=== PATIENT | male | born 1975 | race Caucasian/White ===

== ENCOUNTER → 2016-07-14 | Outpatient (CLI) | payer SELFPAY ==
[2016-07-14 09:28] LABS: HEMATOCRIT 45.5 % (42.0-52.0); HEMOGLOBIN 15.7 g/dL (14.0-18.0); MEAN CORPUSCULAR HEMOGLOBIN 30.4 PG (27-31); MEAN CORPUSCULAR HGB CONC 34.5 g/dL (33-37); MEAN CORPUSCULAR VOLUME 88.2 FL (80-90); MEAN PLATELET VOLUME 9.2 FL (7.4-12.2); RED BLOOD COUNT 5.16 10^6/uL (4.70-6.10)
[2016-07-14 09:53] LABS: BILIRUBIN,URINE NEGATIVE (NEG); COLOR,URINE YELLOW; GLUCOSE, URINE (UA) NEGATIVE (NEG); NITRATE,URINE NEGATIVE (NEG); OCCULT BLOOD,URINE NEGATIVE (NEG); PROTEIN,URINE NEGATIVE (NEG); UROBILINOGEN,URINE 0.2 EU/dL (0.2)
[2016-07-14 09:57] LABS: CLARITY,URINE CLEAR (CLEAR)
[2016-07-15 06:09] LABS: CALCIUM 8.7 mg/dL (8.7-10.7); EST GLOMERULAR FILTRATION > 60 (>60 ml/min/1.73m(2)); SERUM ALBUMIN 3.8 g/dL (3.5-4.8)
[2016-07-15 18:20] LABS: URINE SAMPLE TYPE CLEAN CATCH URINE
== END ==
LOC: LAB 08:57
PROVIDERS: ATTEND Family Medicine
DX: N50.812 Left testicular pain (principal); J44.9 Chronic obstructive pulmonary disease, unspecified; R35.0 Frequency of micturition; Z80.0 Family history of malignant neoplasm of digestive organs; F17.200 Nicotine dependence, unspecified, uncomplicated
CPT/HCPCS: 36415; 80053; 80061; 81003; 85027

== ENCOUNTER → 2016-07-16 | Outpatient (CLI) | payer SELFPAY ==
--- NOTE | 2016-07-16 14:23 | DI ---
US SCROTUM,07/16/2016 12:48 PM: Clinical History: Left testicular pain Previous Exam: None at this facility. Findings: Multiple grayscale and color Doppler sonographic images are obtained through the testicles and scrotu m bilaterally. The testicles are normal in size shape and echotexture bilaterally with normal Doppler waveforms. The re is no evidence of intratesticular mass. There is no evidence of torsion. The right testicle measured 4.4 x 2.0 x 2.9 cm and the left testicle measured 3.9 x 2.2 x 2.7 cm. The re is normal venous and arterial Doppler waveforms obtained. The area of maximum tenderness correspond with the cutaneous lesion near the posterior scrotum near t he base of the penis. This measures 1.1 x 0.9 cm and is diffusely hypoechoic with a central portion t hat is nearly anechoic. Impression: Tenderness corresponds with a deep subcutaneous lesion within the posterior scrotum near the base of the penis measuring 1.1 x 0.9 cm.
== END ==
LOC: US 12:42
PROVIDERS: ATTEND Family Medicine
DX: N50.812 Left testicular pain (principal); F17.200 Nicotine dependence, unspecified, uncomplicated
CPT/HCPCS: 76870

== ENCOUNTER 2016-07-17 23:26 | Emergency (ER) | payer SELFPAY ==
[2016-07-17 23:52] LABS: BASOPHILS # (AUTO) 0.08 10*3/UL; BASOPHILS % (AUTO) 0.5 % (0-1); BLOOD UREA NITROGEN 12 mg/dL (7-22); CALCIUM 9.1 mg/dL (8.7-10.7); EOSINOPHILS # (AUTO) 0.21 10*3/UL; EOSINOPHILS % (AUTO) 1.4 % (0-8); EST GLOMERULAR FILTRATION > 60 (>60 ml/min/1.73m(2)); HEMATOCRIT 49.7 % (42.0-52.0); HEMOGLOBIN 17.3 g/dL (14.0-18.0); MEAN CORPUSCULAR HEMOGLOBIN 30.4 PG (27-31); MEAN CORPUSCULAR HGB CONC 34.8 g/dL (33-37); MEAN CORPUSCULAR VOLUME 87.3 FL (80-90); MEAN PLATELET VOLUME 9.2 FL (7.4-12.2); MONOCYTES # (AUTO) 0.48 10*3/UL (0.3-0.8); MONOCYTES % (AUTO) 3.2 % (5-15); NEUTROPHILS # (AUTO) 11.59 10*3/UL; NEUTROPHILS % (AUTO) 76.2 % (50-80); PLATELET MORPHOLOGY COMMENT NORMAL MORPHOLOGY (NORM); RBC MORPHOLOGY COMMENT NORMAL MORPHOLOGY (NORM); RED BLOOD COUNT 5.69 10^6/uL (4.70-6.10); SERUM ALBUMIN 4.7 g/dL (3.5-4.8); WBC MORPHOLOGY COMMENT NORMAL MORPHOLOGY (NORM)
[2016-07-18 00:03] VITALS: TEMP 96.3
[2016-07-18] MEDS ORDERED: Sodium Chloride 0.9% 1,000 ML PRIMARY IV ONE (00:10)
[2016-07-18 03:29] LABS: URINE SAMPLE TYPE VOIDED SPECIMEN; URINE SPECIFIC GRAVITY - MAN 1.007
[2016-07-18 03:32] VITALS: RESP 18
[2016-07-18 03:38] LABS: AMPHETAMINE SCREEN POSITIVE (NEG); METHAMPHETAMINES SCREEN,URINE NEGATIVE (NEG)
[2016-07-18 03:39] LABS: CANNABINOID SCREEN,URINE NEGATIVE (NEG); COCAINE SCREEN NEGATIVE (NEG); METHADONE URINE SCREEN NEGATIVE (NEG); OPIATE SCREEN,URINE NEGATIVE (NEG)
--- NOTE | 2016-07-18 07:07 | PDOC ---
General Adult HPI - General Chief Complaint: Drug / Alcohol Use &/or Abuse Stated Complaint: ETOH INTOXICATION Date Seen by Provider: 07/17/16 Time Seen by Provider: 23:40 Source: POSITIVE: Patient, EMS Exam Limitations: POSITIVE: No limitations Nurse's Notes Reviewed & Considered: Yes EMS Report Reviewed & Considered: Verbal - History of Present Illness Initial Comment: The patient is a 40-year-old male who was brought to the emergency room by ambulance. Patient was drinking heavily at a local bar when he reportedly had a couple episodes of vomiting and then passed out. Paramedics report that he is responsive but had decreased responsiveness and smelled very heavily of alcohol. Have you received a tetanus shot in the past 10 years?: Unknown Body Location Affected: REPORTS: Other (Alcoholic intoxication) Timing: REPORTS: Gradual Duration: <24 hours Severity: Moderate Quality: REPORTS: Other (No pain anywhere) Context: REPORTS: Other (Drinking heavily). DENIES: None, Sitting, Standing, Activity, Emotional stress, Coughing, Recent Trauma, Recent Surgery, Sleep, Rest , Lifting, Turning, Bending, Fall, Near Fall Modifying Factors: improves with: Vomiting (As above) Similar Symptoms Previously: Yes (history of alcohol abuse) Recent Care Received: REPORTS: Denies Any Prior Injuries Related to Current Complaint?: No - Patient Home Medications Home Medications: Home Medications Albuterol Sulfate [Ventolin Hfa] 1 - 2 puff INH Q4-6H puff 06/26/16 Amphet Asp/Amphet/D-Amphet [Adderall Xr 20 Mg Capsule] 20 mg PO DAILY cap 06/26 Fluticasone/Vilanterol [Breo Ellipta 200-25 Mcg Inh] 1 each INH puff 06/26/16 - Patient Allergies Allergies/Adverse Reactions: Allergies Allergy/AdvReac Type Severity Reaction Status Date / Time Penicillins Allergy Severe NOT Verified 07/17/16 23:39 APPLICABLE Past Medical History - heen HEENT History: Denies History Cardiovascular History: Denies History Respiratory History: COPD Gastrointestinal History: Denies History Genitourinary History: Denies History Endocrine History: Denies History Musculoskeletal History: Denies History Neurological History: Denies History Blood Disorders: Denies History Psychiatric History: Denies History History of Sexually Transmitted Diseases: No Male Reproductive History: Other (please comment) Additional Male Reproductive History: RECENT US FOR SCROTAL MASS Cancer History: Denies History In Past Year Been Physically Harmed or Verbally Threatened: No History of MDRO: No History of Other Communicable Diseases: No Tobacco Use: Current Every Day Smoker Alcohol Use: Other Type of alcohol normally used: Hard Liquor Substance Use Type: Other (please comment) Previous Surgical History: No Significant Family History: No pertinent family hx Past Medical History Reviewed: Reviewed - No Changes ROS - Limitations ROS Limitations: Intoxication (Patient smells heavily of alcohol and initially was poorly responsive due to intoxication. He gradually sobered up though and was able to provide a review of systems and history of present illness.) Constitution: REPORTS: Denies Symptoms Cardiovascular: REPORTS: Denies Cardiac Symptoms Respiratory: REPORTS: Denies Resp Symptoms Neurological: REPORTS: Denies Neuro Symptoms Gastrointestinal: REPORTS: Nausea, Vomitting Endocrine: REPORTS: Denies Symptoms Musculoskeletal: REPORTS: Denies MS Symptoms Genitourinary: REPORTS: Denies Symptoms Eyes: REPORTS: Denies Symptoms ENT: REPORTS: Denies Symptoms Skin: REPORTS: Denies Skin Symptoms Lympathic: REPORTS: Denies Lympathic Symptoms Immunologic: POSITIVE: Denies Symptoms Psychiatric: POSITIVE: Denies Psych Symptoms General Adult Exam - General Appearance General Appearance: POSITIVE: Alert, Cooperative, No Acute Distress, No Evidence of Trauma - HEENT HEENT: POSITIVE: Head Inspection Nml, Eyes Inspection Nml, Ears Inspection Nml, Nose Inspection Nml, Oral/Dental Inspect. Nml, Pharynx Inspect. Nml, PERRL, EOMI - Pupils Pupil Size: 4 mm: Bilateral (PERRLA) - Neck Neck: POSITIVE: Normal Inspection, Thyroid Normal - Respiratory Respiratory: POSITIVE: No Respiratory Distress, Breath Sounds Normal, Chest Non- Tender - Cardiovascular Cardiovascular: POSITIVE: Regular Rate & Rhythm, No Murmur, No Gallop, PMI Normal Peripheral Pulses: Radial (R): 2+, Radial (L): 2+ - Abdomen Abdomen: Soft: (All Quadrants), Normal Bowel Sounds: (All Quadrants), Denies Tenderness: (All Quadrants), No Splenomegaly: (All Quadrants), No Hepatomegaly: (All Quadrants), No Guarding: (All Quadrants), No Rebound: (All Quadrants), No Palpable Pulse: (All Quadrants), No Palpabale Mass: (All Quadrants), No Distention: (All Quadrants), No Rigidity: (All Quadrants) - Back Back: POSITIVE: Normal Inspection - Skin Skin: POSITIVE: Normal Color, Warm, Dry, No Rash - Extremities Extremity: Non-Tender: (All Extremities), Normal ROM: (All Extremities), Normal Inspection: (All Extremities) - Neurological / Psychological Neurological: POSITIVE: Oriented X3, 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, Motor Normal, Sensation Normal, 5, 6 General Adult Progress - Results Reviewed by me Lab Results Reviewed: Yes Lab Results:: Laboratory Results 07/17/16 07/18/16 Range/Units 23:20 03:29 WBC 15.21 H (4.8-10.8) 10^3/uL RBC 5.69 (4.70-6.10) 10^6/uL Hgb 17.3 (14.0-18.0) g/dL Hct 49.7 (42.0-52.0) % MCV 87.3 (80-90) FL MCH 30.4 (27-31) PG MCHC 34.8 (33-37) g/dL RDW Std Deviation 45.7 (39-50) fL RDW Coeff of [place] 14.2 (11.5-14.5) % Plt Count 378 H (140-350) 10*3/uL MPV 9.2 (7.4-12.2) FL Immature Gran % (Auto) 0.3 (0-5) % Neut % (Auto) 76.2 (50-80) % Lymph % (Auto) 18.4 (10-50) % [place] % (Auto) 3.2 L (5-15) % Eos % (Auto) 1.4 (0-8) % Baso % (Auto) 0.5 (0-1) % Immature Gran # (Auto) 0.05 10*3/UL Neut # (Auto) 11.59 10*3/UL Lymph # (Auto) 2.80 10*3/uL [place] # (Auto) 0.48 (0.3-0.8) 10*3/UL Eos # (Auto) 0.21 10*3/UL Baso # (Auto) 0.08 10*3/UL WBC Morphology Comment Normal morphology (NORM) Plt Morphology Comment Normal morphology (NORM) RBC Morph Comment Normal morphology (NORM) Sodium 141 (135-145) meq/L Potassium 3.9 (3.8-5.2) meq/L Chloride 104 (98-112) meq/L Carbon Dioxide 23 (23-33) meq/L Anion Gap 14 (5-20) BUN 12 (7-22) mg/dL Creatinine 1.0 (0.70-1.50) mg/dL Estimated GFR > 60 (>60 ml/min/1.73m(2)) BUN/Creatinine Ratio 12.00 (6-20) Glucose 136 H (78-110) mg/dL Calculated Osmolality 293.0 H (267-292) mOsm/kg Calcium 9.1 (8.7-10.7) mg/dL Total Bilirubin 1.5 H (0.3-1.2) mg/dL AST 34 (21-57) IU/L ALT 35 (21-72) IU/L Alkaline Phosphatase 117 (38-126) IU/L Total Protein 8.0 (6.1-8.0) g/dL Albumin 4.7 (3.5-4.8) g/dL Globulin 3.3 (2.50-4.10) g/dL Albumin/Globulin Ratio 1.40 (1.3-2.0) mg/g Ur Collection Type Voided specimen U Specif Grav (Refrac) 1.007 Urine Opiates Screen Negative (NEG) Ur Buprenorphine Negative (NEG) Ur Oxycodone Screen Negative (NEG) Urine Methadone Screen Negative (NEG) Ur Propoxyphene Screen Negative (NEG) Barbiturate Screen Negative (NEG) U Tricyclic Antidepress Negative (NEG) Phencyclidine Screen Negative (NEG) Amphetamines Screen Positive H (NEG) U Methamphetamines Scrn Negative (NEG) Benzodiazepines Screen Negative (NEG) Cocaine Screen Negative (NEG) U Marijuana (THC) Screen Negative (NEG) Serum Alcohol 285 H (0-10) mg/dL - Patient's Progress Pain Medication Addressed: POSITIVE: Not Applicable School/Work Release Addressed: POSITIVE: Not Applicable Re-Examine Time: 03:55 Re-Examine Comment: Patient alert oriented and asymptomatic on discharge Status: POSITIVE: Improved, Re-Examined Antibiotics Given: No - Consult Counseled: POSITIVE: Patient, RE: Lab Results, RE: DX, RE: Need for F/U Patient Care Time - Estimated PCT Patient Care Time (In Minutes): 60 Vital Signs - Recent Vital Signs Vital Signs: Vital Signs (Last 8 hours) Temp Pulse Resp BP Pulse Ox 07/18/16 03:00 80 18 112/79 90 07/17/16 23:26 96.3 F L 65 20 114/84 93 - VS Reviewed Vital Signs Reviewed: Yes Discharge Clinical Impression: Alcohol intoxication Discharge Disposition: Discharged to Home Condition: Good Patient Instructions Given at Discharge: Alcohol Intoxication (ED) Additional Instructions: Rest today and increase fluids. Avoid further use of alcohol. Return here anytime if condition worsens. Recommend that you seek an alcohol abuse counselor from some organizations such as [employer]. Follow-up with your primary care provider. Follow Up With: MARYANA VIRGEN [Primary Care Provider] - (Instructions as above. Return as necessary.)
== END 2016-07-18 08:05 | disposition home or self-care (01) ==
LOC: ER 23:26
DX: F10.129 Alcohol abuse with intoxication, unspecified (principal); R11.2 Nausea with vomiting, unspecified; R55 Syncope and collapse; Z72.0 Tobacco use
CPT/HCPCS: 80053; 80305; 80320; 85025; 99283; 99284; J7030

== ENCOUNTER → 2016-08-12 | Outpatient (CLI) | payer SELFPAY | LOC: LAB 09:05 | PROVIDERS: ATTEND Urology | DX: Z80.42 Family history of malignant neoplasm of prostate (principal) | CPT/HCPCS: 36415; 84153 ==

== ENCOUNTER 2016-08-31 15:45 | Emergency (ER) | payer SELFPAY ==
[2016-08-31] MEDS ORDERED: KETOROLAC 15 MG/1 ML VIAL IM ONE (15:58)
--- NOTE | 2016-08-31 16:05 | PDOC ---
Hand / Wrist Injury HPI - General Chief Complaint: Upper Extremity Problem/Injury Stated Complaint: left arm injury Date Seen by Provider: 08/31/16 Time Seen by Provider: 15:50 Source: POSITIVE: Patient, Spouse Exam Limitations: POSITIVE: No limitations Nurse's Notes Reviewed & Considered: Yes - History of Present Illness Initial Comments: This is a 40-year-old male who presents to the emergency Department chief complaint of left upper extremity pain. The patient states that he slipped and some antifreeze and caught his self falling down. He grabbed onto the wheel well of his vehicle with his arm in a flexed position. He states he felt a painful sensation in his left wrist radiating down to his left elbow. Attempted examination he has full flexion-extension of the upper and lower extremities bilaterally. He has some pain with supination of the left upper extremity. He additionally can oppose his finger and thumb and give me a thumbs up and good cardiograph operator strength bilaterally but difficult. He denies any neck pain or head injury shoulder pain chest pain shortness of breath dizziness or syncope. Have you received a tetanus shot in the past 10 years?: Unknown Body Location Affected: REPORTS: Upper Extremity (L) - Patient Home Medications Home Medications: Home Medications Albuterol Sulfate [Ventolin Hfa] 1 - 2 puff INH Q4-6H puff 06/26/16 Amphet Asp/Amphet/D-Amphet [Adderall Xr 20 Mg Capsule] 20 mg PO DAILY cap 06/26 Fluticasone/Vilanterol [Breo Ellipta 200-25 Mcg Inh] 1 each INH DAILY puff Hydrocodone/Acetaminophen [Furlong 5-325 Tablet] 1 tab PO Q4H PRN #12 tab Ibuprofen [Motrin] 600 mg PO Q6H #30 tablet 08/31/16 - Patient Allergies Allergies/Adverse Reactions: Allergies Allergy/AdvReac Type Severity Reaction Status Date / Time Penicillins Allergy Severe NOT Verified 08/31/16 15:53 APPLICABLE Past Medical History - heen HEENT History: Denies History Cardiovascular History: Denies History Respiratory History: COPD Gastrointestinal History: Denies History Genitourinary History: Denies History Endocrine History: Denies History Musculoskeletal History: Denies History Neurological History: Denies History Blood Disorders: Denies History Psychiatric History: Denies History History of Sexually Transmitted Diseases: No Cancer History: Denies History History of MDRO: No History of Other Communicable Diseases: No Alcohol Use: Other Substance Use Type: Other (please comment) Previous Surgical History: No Significant Family History: No pertinent family hx Hand / Wrist Injury Exam - General Appearance General Appearance: POSITIVE: Alert, Cooperative, No Acute Distress Reflexes: Bicep (R): 2+, Bicep (L): 2+ - Extremities Upper Extremity: POSITIVE: Other (left wrist pain. Left upper extremity tender to pronation. Good environmental services manager bilaterally. Can oppose his finger and thumb without difficulty slight radial snuffbox tenderness.) Neurovascular / Tendon: POSITIVE: Sensation Normal, Motor Normal, No Vascular Compromise Skin: POSITIVE: Warm, Dry - HEENT HEENT: POSITIVE: PERRL, EOMI - Neck / Back Neck/Back: POSITIVE: Normal Inspection, Non-Tender, Painless ROM - Respiratory / CVS Respiratory / CVS: POSITIVE: Chest Non Tender, No Ecchymosis, Breath Sounds Normal, No Respiratory Distress, Heart Sounds Normal, Regular Rate/Rhythm Peripheral Pulses: Radial (R): 2+, Radial (L): 2+ - Abdomen Abdomen: Soft: (All Quadrants), Denies Tenderness: (All Quadrants), No Distention: (All Quadrants) Hand / Wrist Injury Progress - Results Reviewed by me Xrays/CTs/US Reviewed by me: Yes Radiology Findings: X-ray of the left elbow revealed no acute fracture dislocation or effusion. An old nonhealed radial fracture was noted. X-ray left wrist reveal no acute fracture or dislocation. - Patient's Progress Pain Medication Addressed: POSITIVE: Yes School/Work Release Addressed: POSITIVE: Yes MDM / ED Course: Patient was evaluated in the emergency department. Patient physical exam findings are most likely consistent with a sprain of the left wrist and extensors of the left wrist. X-rays of the left wrist did not reveal any acute osseous fracture or soft tissue swelling x-ray of the left elbow did not reveal any acute fracture and old radial fracture was noted. Patient was given 50 mg of Toradol IM with improvement of his pain. Upon reevaluation the patient states he felt better. We've opted for conservative management including rest ice elevation and early range of motion exercises. Additionally the patient will start on a regimen of Motrin 600 mg to be taken every 6 hours if she is 25 for breakthrough pain. He'll follow-up with his primary care from 3-5 days. I recommend no significance weightbearing of the left upper extremity for the next 3-4 days. Patient Care Time - Estimated PCT Patient Care Time (In Minutes): 60 Vital Signs - Recent Vital Signs Vital Signs: Vital Signs (Last 8 hours) Temp Pulse Resp BP Pulse Ox 08/31/16 15:57 97.7 F 79 18 119/85 95 Discharge Clinical Impression: Left wrist sprain Qualifiers: Encounter type: initial encounter Qualifier Code: (S63.502A) Unspecified sprain of left wrist, initial encounter Sprain of elbow, left Qualifiers: Encounter type: initial encounter Qualifier Code: (S53.402A) Unspecified sprain of left elbow, initial encounter Condition: Good Prescriptions / Orders: Ibuprofen [Motrin] 600 mg PO Q6H #30 tablet Hydrocodone/Acetaminophen [Furlong 5-325 Tablet] 1 tab PO Q4H PRN #12 tab PRN Reason: Pain Patient Instructions Given at Discharge: Wrist Sprain (ED) Additional Instructions: Rest, ice wrist. Stretch and use as tolerated Forms: ED : Medical Release Follow Up With: MARYANA VIRGEN [Primary Care Provider] -
[2016-08-31 16:16] VITALS: RESP 18; TEMP 97.7
--- NOTE | 2016-08-31 16:38 | DI ---
LEFT WRIST, 08/31/2016 3:58 PM: Clinical History: Injury. The patient fell with the wrist flexed. Previous Exam: None at this facility. 3 views are submitted. There is no acute soft tissue, osseous, or joint abnormality. Reading: Normal left wrist exam.
--- NOTE | 2016-08-31 16:40 | DI ---
LEFT ELBOW, 08/31/2016 3:58 PM: Clinical History: Injury. The patient fell with the forearm in supination. Previous Exam: None at this facility. 3 views are submitted. No joint effusion is noted. No acute fracture is identified although on the AP projection, the lateral margin of the radial articular surface is quite irregular. This may be secon kiki to a previous radial head fracture. Readin. There is no joint effusion and no definite acute fracture is identified. The irregularity of the lateral margin of the radial head on the AP projection may be secondary to previous injury. 2. If symptoms persist at the affected site, then follow-up films are recommended in 7-10 days.
== END 2016-08-31 16:45 | disposition home or self-care (01) ==
LOC: ER 15:45
DX: S63.502A Unspecified sprain of left wrist, initial encounter (principal); S53.402A Unspecified sprain of left elbow, initial encounter; W01.198A Fall on same level from slipping, tripping and stumbling with subsequent striking against other object, initial encounter
CPT/HCPCS: 73070; 73100; 96372; 99283; J1885